=== PATIENT | female | born 1970 ===

== ENCOUNTER 2020-06-28 20:26 | Inpatient (IN) | payer OTHER ==
[2020-06-28] MEDS ORDERED: IPRATROPIUM 0.02% NEBU 2.5 ML IH ONE (21:01)
[2020-06-28] MEDS ORDERED: dexAMETHasone 20 MG/5 ML VIAL IV ONE (21:01)
[2020-06-28] MEDS ORDERED: ALBUTEROL 2.5 MG/3 ML NEBU IH ONE ×2 (21:01→23:46)
--- NOTE | 2020-06-28 21:38 | XRay Report ---
CHEST 1 VIEW INDICATION / CLINICAL INFORMATION: MAIN. Cough with shortness of breath wheezing. COMPARISON: None available. FINDINGS: SUPPORT DEVICES: None. HEART / MEDIASTINUM: No significant abnormality. LUNGS / PLEURA: No significant pulmonary or pleural abnormality. No pneumothorax. ADDITIONAL FINDINGS: No significant additional findings. IMPRESSION: 1. No acute findings. Signer Name: Valerio Breaux MD Signed: 06/28/2020 9:33 PM Workstation Name: [id number]
[2020-06-28] MEDS ORDERED: MAGNESIUM SULFATE 2 GM/50 ML BAG IV ONE (21:47)
[2020-06-28] MEDS ORDERED: SODIUM CHLORIDE 0.9% 1000 ML 1,000 ML IV ONE (23:45)
--- NOTE | 2020-06-29 | Emergency Department Report ---
ED Asthma HPI - General Chief Complaint: Dyspnea/Respdistress Stated Complaint: DIFFICULTY IN BREATHING Time Seen by Provider: 06/28/20 21:01 Source: patient Mode of arrival: Ambulatory Limitations: No Limitations - History of Present Illness Initial Comments: Patient is a 49-year-old female presents emergency room with complaints of an asthma exacerbation that began 2 weeks ago but worsened in the last 3 days. She states that she feels short of breath, wheezing, chest tightness, cough. She states that she uses albuterol inhaler and albuterol nebulizer for her asthma but has not been helping. She denies any fever, nausea, vomiting, diarrhea. S he denies any sick contacts or recent travel. She denies any other past medical history. No allergies to medications. - Related Data Allergies Allergy/AdvReac Type Severity Reaction Status Date / Time No Known Allergies Allergy Unverified 06/28/20 20:58 ED Review of Systems ROS: Stated complaint: DIFFICULTY IN BREATHING Other details as noted in HPI Comment: All other systems reviewed and negative ED Past Medical Hx - Past Medical History Previous Medical History?: Yes Hx Asthma: Yes - Social History Smoking Status: Never Smoker Substance Use Type: None ED Physical Exam - General Limitations: No Limitations General appearance: alert, other (moderate respiratory distress) - Head Head exam: Present: atraumatic, normocephalic - Eye Eye exam: Present: normal appearance - ENT ENT exam: Present: mucous membranes moist - Respiratory Respiratory exam: Present: respiratory distress, wheezes, decreased breath sounds, prolonged expiratory. Absent: rales, rhonchi, stridor, chest wall tenderness - Cardiovascular Cardiovascular Exam: Present: normal rhythm, tachycardia, normal heart sounds. Absent: systolic murmur, diastolic murmur, rubs, gallop - Speculum exam: Absent: vaginal bleeding - Neurological Exam Neurological exam: Present: alert, oriented X3 - Psychiatric Psychiatric exam: Present: normal affect, normal mood - Skin Skin exam: Present: warm, dry, intact ED Course Vital Signs 06/28/20 06/28/20 20:56 21:07 Temperature 97.9 F Pulse Rate 122 H Pulse Rate [ 101 H Throughout] Respiratory 18 Rate Respiratory 16 Rate [ Throughout] Blood Pressure 171/100 O2 Sat by Pulse 91 Oximetry - Reevaluation(s) Reevaluation #1: 06/29/20 01:[address] Valle, ER attending who evaluated patient at bedside, advised to admit patient for status asthmaticus, order subcutaneous epinephrine 0.3, and order ABG - Consultations Consultation #1: 06/29/20 03:[address] Collier, hospitalist who will accept and resume care of patient, will admit patient, advised to bridge to [facility] ED Medical Decision Making - Lab Data Result diagrams: 06/28/20 23:58 06/28/20 23:58 Lab Results 06/28/20 06/28/20 06/29/20 Range/Units 23:58 23:58 02:20 WBC 11.1 H (4.5-11.0) K/mm3 RBC 4.83 (3.65-5.03) M/mm3 Hgb 13.5 (10.1-14.3) gm/dl Hct 40.9 (30.3-42.9) % MCV 85 (79-97) fl MCH 28 (28-32) pg MCHC 33 (30-34) % RDW 14.5 (13.2-15.2) % Plt Count 321 (140-440) K/mm3 Lymph % (Auto) 10.6 L (13.4-35.0) % [place] % (Auto) 1.4 (0.0-7.3) % Eos % (Auto) 1.5 (0.0-4.3) % Baso % (Auto) 0.2 (0.0-1.8) % Lymph # (Auto) 1.2 (1.2-5.4) K/mm3 [place] # (Auto) 0.2 (0.0-0.8) K/mm3 Eos # (Auto) 0.2 (0.0-0.4) K/mm3 Baso # (Auto) 0.0 (0.0-0.1) K/mm3 Seg Neutrophils % 86.3 H (40.0-70.0) % Seg Neutrophils # 9.6 H (1.8-7.7) K/mm3 ABG pH 7.368 (7.350-7.450) pH Units ABG pCO2 34.1 mm Hg ABG pO2 81.3 (80.0-90.0) mm Hg ABG HCO3 19.2 L (20.0-26.0) mmol/L ABG O2 Saturation 96.1 (95.0-99.0) % ABG O2 Content 18.5 (0.0-44) ABG Base Excess -5.2 L (-2.0-3.0) mmol/L ABG Hemoglobin 13.9 (12.0-16.0) gm/dl ABG Carboxyhemoglobin 1.1 (0.0-5.0) % ABG Methemoglobin 0.4 (0.0-1.5) % Oxyhemoglobin 94.6 L (95.0-99.0) % FiO2 21 % Sodium 143 (137-145) mmol/L Potassium 3.7 (3.6-5.0) mmol/L Chloride 108.4 H (98-107) mmol/L Carbon Dioxide 25 (22-30) mmol/L Anion Gap 13 mmol/L BUN 12 (7-17) mg/dL Creatinine 0.5 L (0.6-1.2) mg/dL Estimated GFR > 60 ml/min BUN/Creatinine Ratio 24 % Glucose 141 H (65-100) mg/dL Calcium 9.1 (8.4-10.2) mg/dL Total Bilirubin 0.20 (0.1-1.2) mg/dL AST 17 (5-40) units/L ALT 15 (7-56) units/L Alkaline Phosphatase 101 (35-129) units/L Total Protein 7.4 (6.3-8.2) g/dL Albumin 3.9 (3.9-5) g/dL Albumin/Globulin Ratio 1.1 % - Radiology Data Radiology results: report reviewed Ordering Physician: LAMBERT CORNELIUS Date of Service: 06/28/20 Procedure(s): XR chest 1V ap Accession Number(s): [id number] cc: LAMBERT CORNELIUS Fluoro Time In Minutes: CHEST 1 VIEW INDICATION / CLINICAL INFORMATION: MAIN. Cough with shortness of breath wheezing. COMPARISON: None available. FINDINGS: SUPPORT DEVICES: None. HEART / MEDIASTINUM: No significant abnormality. LUNGS / PLEURA: No significant pulmonary or pleural abnormality. No pneumothorax. ADDITIONAL FINDINGS: No significant additional findings. IMPRESSION: 1. No acute findings. Signer Name: Ngoc Cunningham MD Signed: 06/28/2020 9:33 PM Workstation Name: [id number] Transcribed By: Dictated By: NGOC CUNNINGHAM Electronically Authenticated By: NGOC CUNNINGHAM Signed Date/Time: 06/28/202132 DD/ 31 TD/TT: - Medical Decision Making Patient is a 49-year-old female presents emergency room with complaints of an asthma exacerbation that began 2 weeks ago but worsened in the last 3 days. She states that she feels short of breath, wheezing, chest tightness, cough. She states that she uses albuterol inhaler and albuterol nebulizer for her asthma but has not been helping. She denies any fever, nausea, vomiting, diarrhea. She denies any sick contacts or recent travel. She denies any other past medical history. No allergies to medications. Vitals with tachycardia and hypoxia. On exam patient has moderate respiratory distress, wheezing, decreased breath sounds, prolonged expiratory phase. Patient given continuous neb treatment, dexamethasone. On reexamination patient continues to have wheezing, patient given albuterol and magnesium. Chest x-ray 1. No acute findings. Labs are stable. Patient ambulated in the emergency department her oxygen saturation is 90-91% on room air. She is not on any oxygen at home. She has had no previous intubations. She has had prior hospitalizations. Discussed case with Dr. Valle, ER attending who evaluated patient at bedside, advised to admit patient for status asthmaticus, order subcutaneous epinephrine 0.3, and order ABG. ABG is stable.Spoke to Dr. Collier, hospitalist who will accept and resume care of patient, will admit patient, advised to bridge to [facility]. Patient admitted to hospitalist service - Differential Diagnosis Asthma, URI, PNA, acute bronchitis, reactive airway, sleep apnea Critical Care Time: Yes Critical care time in (mins) excluding proc time.: 35 Critical care attestation.: If time is entered above; I have spent that time in minutes in the direct care of this critically ill patient, excluding procedure time. Critical Care Time: Critical care time includes multiple reexaminations, consultations, interpretation of diagnostic and laboratory studies ED Disposition Clinical Impression: Hypoxia, SOB (shortness of breath), Wheezing, Chest tightness Status asthmaticus Qualifiers: Asthma severity: unspecified severity Asthma persistence: unspecified Qualified Code(s): J45.902 - Unspecified asthma with status asthmaticus Disposition: OP ADMIT IP TO THIS HOSP Is pt being admited?: Yes Does the pt Need Aspirin: No Condition: Serious Referrals: PRIMARY CARE,MD [Primary Care Provider] - 3-5 Days
[2020-06-29 00:24] LABS: Basophils % (Auto) 0.2 % (0.0-1.8); Eosinophils # (Auto) 0.2 K/mm3 (0.0-0.4); Eosinophils % (Auto) 1.5 % (0.0-4.3); Hematocrit 40.9 % (30.3-42.9); Hemoglobin 13.5 gm/dl (10.1-14.3); Lymphocytes # (Auto) 1.2 K/mm3 (1.2-5.4); Lymphocytes % (Auto) 10.6 % (13.4-35.0); Mean Corpuscular HGB Conc 33 % (30-34); Mean Corpuscular Volume 85 fl (79-97); Monocytes # (Auto) 0.2 K/mm3 (0.0-0.8); Monocytes % (Auto) 1.4 % (0.0-7.3); Platelet Count 321 K/mm3 (140-440); Red Blood Count 4.83 M/mm3 (3.65-5.03); Red Cell Distribution Width 14.5 % (13.2-15.2)
[2020-06-29 00:48] LABS: BUN/Creatinine Ratio 24; Blood Urea Nitrogen 12 mg/dL (7-17)
[2020-06-29 00:49] LABS: Alanine Aminotransferase 15 units/L (7-56); Albumin 3.9 g/dL (3.9-5); Calcium 9.1 mg/dL (8.4-10.2); Hemolysis Index 3
[2020-06-29] MEDS ORDERED: EPINEPHrine/PF 1 MG/1 ML INJ SUB-Q ONE (01:55)
--- NOTE | 2020-06-29 02:14 | Event Note ---
Date: 06/29/20 The patient was evaluated in the emergency department for symptoms described in the history of present illness. He/she was evaluated in the context of the global COVID-19 pandemic, which necessitated consideration that the patient might be at risk for infection with the virus that causes COVID-19. Institutional protocols and algorithms that pertain to the evaluation of patients at risk for COVID-19 are in a state of rapid change based on information released by regulatory bodies including the CDC and federal and state organizations. These policies and algorithms were followed during the patient's care in the emergency department. Please note that these policies, procedures and recommendations changed on a rapid basis. 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 She denies DVT, pulmonary embolism risk factors. Given albuterol, steroids, magnesium, still wheezing, rhonchorous, short of breath and symptomatic. Meets criteria for hospitalization secondary to refractory asthma. Saturating at 95% on room air. Obtain ABG on room air, initiate subcutaneous epinephrine, continue albuterol. Discussed with physician construction administrative assistant. Physical exam otherwise unremarkable, with exception of tachycardia, likely secondary to albuterol, reactive airways disease, and diffuse wheezing and rhonchi. Vital Signs 06/28/20 06/28/20 20:56 21:07 Temperature 97.9 F Pulse Rate 122 H Pulse Rate [ 101 H Throughout] Respiratory 18 Rate Respiratory 16 Rate [ Throughout] Blood Pressure 171/100 O2 Sat by Pulse 91 Oximetry Lab Results 06/28/20 06/28/20 Range/Units 23:58 23:58 WBC 11.1 H (4.5-11.0) K/mm3 RBC 4.83 (3.65-5.03) M/mm3 Hgb 13.5 (10.1-14.3) gm/dl Hct 40.9 (30.3-42.9) % MCV 85 (79-97) fl MCH 28 (28-32) pg MCHC 33 (30-34) % RDW 14.5 (13.2-15.2) % Plt Count 321 (140-440) K/mm3 Lymph % (Auto) 10.6 L (13.4-35.0) % [place] % (Auto) 1.4 (0.0-7.3) % Eos % (Auto) 1.5 (0.0-4.3) % Baso % (Auto) 0.2 (0.0-1.8) % Lymph # (Auto) 1.2 (1.2-5.4) K/mm3 [place] # (Auto) 0.2 (0.0-0.8) K/mm3 Eos # (Auto) 0.2 (0.0-0.4) K/mm3 Baso # (Auto) 0.0 (0.0-0.1) K/mm3 Seg Neutrophils % 86.3 H (40.0-70.0) % Seg Neutrophils # 9.6 H (1.8-7.7) K/mm3 Sodium 143 (137-145) mmol/L Potassium 3.7 (3.6-5.0) mmol/L Chloride 108.4 H (98-107) mmol/L Carbon Dioxide 25 (22-30) mmol/L Anion Gap 13 mmol/L BUN 12 (7-17) mg/dL Creatinine 0.5 L (0.6-1.2) mg/dL Estimated GFR > 60 ml/min BUN/Creatinine Ratio 24 % Glucose 141 H (65-100) mg/dL Calcium 9.1 (8.4-10.2) mg/dL Total Bilirubin 0.20 (0.1-1.2) mg/dL AST 17 (5-40) units/L ALT 15 (7-56) units/L Alkaline Phosphatase 101 (35-129) units/L Total Protein 7.4 (6.3-8.2) g/dL Albumin 3.9 (3.9-5) g/dL Albumin/Globulin Ratio 1.1 % Print Report Referring Physician: BRANDI BURNS Patient Name: MOSES SAMPSON Date of : 1970 Sex: Female Report Date: 2020-06-28 Report Status: Finalized Findings [facility] [address] [place] [address] XRay Report Signed Patient: MOSES BACH MR#: [id number] : 1970 Acct:[id number] Age/Sex: 49 / F ADM Date: 06/28/20 Loc: ED Attending Dr: Ordering Physician: LAMBERT CORNELIUS Date of Service: 06/28/20 Procedure(s): XR chest 1V ap Accession Number(s): [id number] cc: LAMBERT CORNELIUS Fluoro Time In Minutes: CHEST 1 VIEW INDICATION / CLINICAL INFORMATION: MAIN. Cough with shortness of breath wheezing. COMPARISON: None available. FINDINGS: SUPPORT DEVICES: None. HEART / MEDIASTINUM: No significant abnormality. LUNGS / PLEURA: No significant pulmonary or pleural abnormality. No pneumothorax. ADDITIONAL FINDINGS: No significant additional findings. IMPRESSION: 1. No acute findings. Signer Name: Valerio Cunningham MD Signed: 06/28/2020 9:33 PM Workstation Name: [id number] Transcribed By: Dictated By: VALERIO CUNNINGHAM Electronically Authenticated By: VALERIO CUNNINGHAM Signed Date/Time: 06/28/202132 DD/ 31 TD/TT:
[2020-06-29 03:01] LABS: ABG Base Excess -5.2 mmol/L (-2.0-3.0); ABG HCO3 19.2 mmol/L (20.0-26.0); ABG Methemoglobin 0.4 % (0.0-1.5); ABG Oxygen Saturation 96.1 % (95.0-99.0); ABG PCO2 34.1 mm Hg; ABG PH 7.368 pH Units (7.350-7.450); ABG PO2 81.3 mm Hg (80.0-90.0)
[2020-06-29] MEDS ORDERED: EPINEPHrine/PF 1 MG/1 ML INJ ONE (05:37)
[2020-06-29] MEDS ORDERED: guaiFENesin 100 MG/5 ML ORAL LIQD PO ONE (05:49)
[2020-06-29] MEDS ORDERED: guaiFENesin 100 MG/5 ML ORAL LIQD ONE (05:49)
[2020-06-29] MEDS ORDERED: methylPREDNISolone Sod Succinate 125 MG/2 ML INJ IV SCH (08:00)
[2020-06-29] MEDS ORDERED: methylPREDNISolone Sod Suc 60 MG in SODIUM CHLORIDE 0.9% 100 ML IV SCH (08:11)
[2020-06-29] MEDS ORDERED: methylPREDNISolone Sod Succinate 125 MG/2 ML INJ ONE ×2 (09:08→13:21)
[2020-06-29] MEDS ORDERED: ALBUTEROL 2.5 MG/3 ML NEBU IH ONE ×3 (09:31→21:34)
[2020-06-29] MEDS ORDERED: IPRATROPIUM 0.02% NEBU 2.5 ML IH ONE (09:32)
--- NOTE | 2020-06-29 10:47 | History and Physical Report ---
History of Present Illness Date of examination: 06/29/20 Date of admission: 06/29/20 03:20 Chief complaint: Shortness of breath History of present illness: 9-year-old female with a medical history of asthma on home inhalers presented to the emergency room with a chief complaint of shortness of breath. Patient states that she usually uses her inhalers when she has an attack of asthma and she occasionally gets IV steroid treatment in her PCPs office. She started having symptoms about 1 week ago and she was not getting any relief from her inhaler so she presented to her doctor's office. She could not see her doctor as she needed to have a COVID-19 test prior so she presented to the emergency room for further evaluation. She denies any history of intubations in the past. She denies any contact with someone with COVID-19. Here in the ER, she was given steroids, magnesium, still dyspneic so she was admitted to the hospital. She was not hypoxic without oxygen remained in the 90s. Patient seen and examined at bedside this a.m., she is not dyspneic at rest. Examination shows diffuse expiratory wheezes. Past History Past Medical History: other (Asthma) Past Surgical History: No surgical history Medications and Allergies Allergies Allergy/AdvReac Type Severity Reaction Status Date / Time No Known Allergies Allergy Unverified 06/28/20 20:58 Active Meds: Active Medications Albuterol (Proventil) 2.5 mg IH Q6HRT [facility] Arformoterol Tartrate (Brovana Nebu) 15 mcg IH Q12HRT [facility] Budesonide (Pulmicort) 0.5 mg IH Q12HRT [facility] Methylprednisolone Sodium Succinate (Solu-Medrol) 60 mg IV Q6H [facility] Last Admin: 06/29/20 09:14 Dose: 60 mg Documented by: Review of Systems All systems: negative (Dyspnea on exertion) Exam - Constitutional Vitals: Temp Pulse Resp BP Pulse Ox 98.0 F 105 H 17 122/75 95 06/29/20 04:40 06/29/20 04:40 06/29/20 04:40 06/29/20 04:40 06/29/20 04:40 General appearance: Present: no acute distress, well-nourished - EENT Eyes: Present: PERRL ENT: hearing intact, clear oral mucosa - Neck Neck: Present: supple, normal ROM - Respiratory Respiratory effort: normal Respiratory: bilateral: wheezing - Cardiovascular Heart Sounds: Present: S1 & S2. Absent: rub, click - Extremities Extremities: pulses symmetrical, No edema Peripheral Pulses: within normal limits - Abdominal General gastrointestinal: Present: soft, non-tender, non-distended, normal bowel sounds Female genitourinary: Present: normal - Integumentary Integumentary: Present: clear, warm, dry - Musculoskeletal Musculoskeletal: gait normal, strength equal bilaterally - Psychiatric Psychiatric: appropriate mood/affect, intact judgment & insight - Neurologic Neurologic: CNII-XII intact, moves all extremities Results - Labs CBC & Chem 7: 06/28/20 23:58 06/28/20 23:58 Labs: Laboratory Last Values WBC 11.1 K/mm3 (4.5-11.0) H 06/28/20 23:58 RBC 4.83 M/mm3 (3.65-5.03) 06/28/20 23:58 Hgb 13.5 gm/dl (10.1-14.3) 06/28/20 23:58 Hct 40.9 % (30.3-42.9) 06/28/20 23:58 MCV 85 fl (79-97) 06/28/20 23:58 MCH 28 pg (28-32) 06/28/20 23:58 MCHC 33 % (30-34) 06/28/20 23:58 RDW 14.5 % (13.2-15.2) 06/28/20 23:58 Plt Count 321 K/mm3 (140-440) 06/28/20 23:58 Lymph % (Auto) 10.6 % (13.4-35.0) L 06/28/20 23:58 [place] % (Auto) 1.4 % (0.0-7.3) 06/28/20 23:58 Eos % (Auto) 1.5 % (0.0-4.3) 06/28/20 23:58 Baso % (Auto) 0.2 % (0.0-1.8) 06/28/20 23:58 Lymph # (Auto) 1.2 K/mm3 (1.2-5.4) 06/28/20 23:58 [place] # (Auto) 0.2 K/mm3 (0.0-0.8) 06/28/20 23:58 Eos # (Auto) 0.2 K/mm3 (0.0-0.4) 06/28/20 23:58 Baso # (Auto) 0.0 K/mm3 (0.0-0.1) 06/28/20 23:58 Seg Neutrophils % 86.3 % (40.0-70.0) H 06/28/20 23:58 Seg Neutrophils # 9.6 K/mm3 (1.8-7.7) H 06/28/20 23:58 ABG pH 7.368 pH Units (7.350-7.450) 06/29/20 02:20 ABG pCO2 34.1 mm Hg 06/29/20 02:20 ABG pO2 81.3 mm Hg (80.0-90.0) 06/29/20 02:20 ABG HCO3 19.2 mmol/L (20.0-26.0) L 06/29/20 02:20 ABG O2 Saturation 96.1 % (95.0-99.0) 06/29/20 02:20 ABG O2 Content 18.5 (0.0-44) 06/29/20 02:20 ABG Base Excess -5.2 mmol/L (-2.0-3.0) L 06/29/20 02:20 ABG Hemoglobin 13.9 gm/dl (12.0-16.0) 06/29/20 02:20 ABG Carboxyhemoglobin 1.1 % (0.0-5.0) 06/29/20 02:20 ABG Methemoglobin 0.4 % (0.0-1.5) 06/29/20 02:20 Oxyhemoglobin 94.6 % (95.0-99.0) L 06/29/20 02:20 FiO2 21 % 06/29/20 02:20 Sodium 143 mmol/L (137-145) 06/28/20 23:58 Potassium 3.7 mmol/L (3.6-5.0) 06/28/20 23:58 Chloride 108.4 mmol/L (98-107) H 06/28/20 23:58 Carbon Dioxide 25 mmol/L (22-30) 06/28/20 23:58 Anion Gap 13 mmol/L 06/28/20 23:58 BUN 12 mg/dL (7-17) 06/28/20 23:58 Creatinine 0.5 mg/dL (0.6-1.2) L 06/28/20 23:58 Estimated GFR > 60 ml/min 06/28/20 23:58 BUN/Creatinine Ratio 24 % 06/28/20 23:58 Glucose 141 mg/dL (65-100) H 06/28/20 23:58 Calcium 9.1 mg/dL (8.4-10.2) 06/28/20 23:58 Total Bilirubin 0.20 mg/dL (0.1-1.2) 06/28/20 23:58 AST 17 units/L (5-40) 06/28/20 23:58 ALT 15 units/L (7-56) 06/28/20 23:58 Alkaline Phosphatase 101 units/L (35-129) 06/28/20 23:58 Total Protein 7.4 g/dL (6.3-8.2) 06/28/20 23:58 Albumin 3.9 g/dL (3.9-5) 06/28/20 23:58 Albumin/Globulin Ratio 1.1 % 06/28/20 23:58 Assessment and Plan - Patient Problems (1) Acute asthma exacerbation Current Visit: Yes Status: Acute Plan to address problem: She is not hypoxic at rest but may be hypoxic on ambulation she gets dyspneic with ambulation. Solu-Medrol 60 mg every 8 hours today and taper tomorrow Bronchodilators Pulmonology follow-up at discharge We will check [id number] ordered Patient will need to have prescription for nebulizer, inhalers and albuterol vials at discharge. She states that she does not have insurance so we will discuss with case management. (2) DVT prophylaxis Current Visit: Yes Status: Acute Plan to address problem: Lovenox 40 mg daily
[2020-06-29] MEDS ORDERED: ONDANSETRON 4 MG/2 ML INJ IV PRN (11:00)
[2020-06-29] MEDS ORDERED: ACETAMINOPHEN 325 MG TAB PO PRN (11:00)
[2020-06-29] MEDS: ALBUTEROL 2.5 MG/3 ML NEBU IH SCH ×5 (11:23→21:37)
[2020-06-29] MEDS: ARFORMOTEROL 15 MCG/2 ML NEBU IH SCH ×2 (11:24→21:38)
[2020-06-29] MEDS: BUDESONIDE 0.5 MG/2 ML NEBU IH SCH ×2 (11:25→21:38)
[2020-06-29] MEDS: methylPREDNISolone Sod Succinate 125 MG/2 ML INJ IV SCH ×2 (13:33→22:57)
[2020-06-29] MEDS ORDERED: ARFORMOTEROL 15 MCG/2 ML NEBU IH ONE (21:34)
[2020-06-29] MEDS ORDERED: BUDESONIDE 0.5 MG/2 ML NEBU IH ONE (21:34)
[2020-06-29] MEDS ORDERED: ENOXAPARIN 40 MG/0.4 ML INJ SUB-Q SCH (22:00)
[2020-06-30] MEDS: ALBUTEROL 2.5 MG/3 ML NEBU IH SCH ×3 (03:00→14:19)
[2020-06-30] MEDS: methylPREDNISolone Sod Succinate 125 MG/2 ML INJ IV SCH ×2 (05:58→13:06)
[2020-06-30] MEDS: BUDESONIDE 0.5 MG/2 ML NEBU IH SCH (08:25)
[2020-06-30] MEDS: ARFORMOTEROL 15 MCG/2 ML NEBU IH SCH (08:25)
--- NOTE | 2020-06-30 14:39 | Discharge Summary ---
Providers - Providers Date of Admission: 06/29/20 15:07 Date of discharge: 06/30/20 Attending physician: SHASHANK DAVID 06/29/20 Consult to Case Management [CONS] Routine Services Needed at Discharge: DME Equipment Notified:: Order placed for case management review Primary care physician: BOTTOM MAN Hospitalization Condition: Serious Hospital course: 9-year-old female with a medical history of asthma on home inhalers presented to the emergency room with a chief complaint of shortness of breath. Patient states that she usually uses her inhalers when she has an attack of asthma and she occasionally gets IV steroid treatment in her PCPs office. She started having symptoms about 1 week ago and she was not getting any relief from her inhaler so she presented to her doctor's office. She could not see her doctor as she needed to have a COVID-19 test prior so she presented to the emergency room for further evaluation. She denies any history of intubations in the past. She denies any contact with someone with COVID-19. Here in the ER, she was given steroids, magnesium, still dyspneic so she was admitted to the hospital. She was not hypoxic without oxygen remained in the 90s. Patient seen and examined at bedside this a.m., she is not dyspneic at rest. Examination shows diffuse expiratory wheezes. Patient started on IV Solu-Medrol and admitted to the hospital. 06/30. Patient seen and examined at bedside this morning. Has very minimal wheeze on exam. Taper steroids today. Ambulate and if oxygen level remains acceptable, plan to discharge. COVID-19 test is negative. Patient will need to have prescriptions for albuterol, nebulizer, rescue inhaler maintenance inhalers. She has no insurance. She mentions that she has been having asthma exacerbation recurrences in the past few months. She will need to follow-up with pulmonology for complete evaluation. Patient agrees with plan. Disposition: - TO HOME OR SELFCARE - Discharge Diagnoses (1) Acute asthma exacerbation Status: Acute (2) DVT prophylaxis Status: Acute Core Measure Documentation - Palliative Care Palliative Care/ Comfort Measures: Not Applicable - Core Measures Any of the following diagnoses?: none Exam - Constitutional Vitals: Temp Pulse Resp BP Pulse Ox 97.7 F 87 16 118/61 91 06/30/20 04:43 06/30/20 04:43 06/30/20 04:43 06/30/20 04:43 06/30/20 04:43 General appearance: Present: no acute distress, well-nourished - EENT Eyes: Present: PERRL ENT: hearing intact, clear oral mucosa - Neck Neck: Present: supple, normal ROM - Respiratory Respiratory effort: normal, other (No shortness of breath) Respiratory: bilateral: wheezing (Very minimal) - Cardiovascular Heart Sounds: Present: S1 & S2. Absent: rub, click - Extremities Extremities: pulses symmetrical, No edema Peripheral Pulses: within normal limits - Abdominal General gastrointestinal: Present: soft, non-tender, non-distended, normal bowel sounds Female genitourinary: Present: normal - Integumentary Integumentary: Present: clear, warm, dry - Musculoskeletal Musculoskeletal: gait normal, strength equal bilaterally - Psychiatric Psychiatric: appropriate mood/affect, intact judgment & insight - Neurologic Neurologic: CNII-XII intact, moves all extremities Plan Activity: no restrictions Additional Instructions: Continue prednisone as ordered. Continue maintenance inhalers as ordered. Follow-up with pulmonology in the office for pulmonary function tests. Follow up with: PRIMARY CARE, [Primary Care Provider] - 3-5 Days SERAFIN RUBI MD [Staff Physician] - 7 Days Prescriptions: Fluticasone/Salmeterol [Advair 250-50 Diskus] 1 each IH BID #1 inh predniSONE [Deltasone] 40 mg PO BID #8 tab predniSONE [Deltasone] 40 mg PO DAILY 5 Days #10 tablet ALBUTEROL NEB's [Proventil 0.083% NEBS] 2.5 mg IH Q8HR PRN #300 ml PRN Reason: Wheezing
[2020-06-30 15:02] VITALS: BP 132/86
== END 2020-06-30 17:11 | disposition home or self-care (01) | DRG 203 ==
LOC: ED 20:26 → 4A 06-29 03:20 → 3A 06-29 06:24 → OBSVTOIN 06-29 15:07 → 3A 06-29 19:53
PROVIDERS: ADMIT Internal Medicine Geriatric Medicine; ATTEND Internal Medicine
PROC: 4A033R1 Measurement of Arterial Saturation, Peripheral, Percutaneous Approach (ICD-10-PCS; principal; 2020-06-29)
DX: J45.902 Unspecified asthma with status asthmaticus (principal); Z20.828 Contact with and (suspected) exposure to other viral communicable diseases; Z79.52 Long term (current) use of systemic steroids
CPT/HCPCS: 36415; 71045; 80053; 82803; 85025; 94640; 94644; G0378; J0171; J1100; J1650; J2930; J3475; J7030; U0003

== ENCOUNTER 2020-08-28 04:38 | Observation (INO) | payer MEDICAID ==
[2020-08-28] MEDS ORDERED: IPRATROPIUM/ALBUTEROL SULFATE 3 ML AMPUL.NEB IH ONE (04:47)
[2020-08-28] MEDS ORDERED: ALBUTEROL 2.5 MG/3 ML NEBU IH ONE (04:47)
[2020-08-28] MEDS ORDERED: methylPREDNISolone Sod Succinate 125 MG/2 ML INJ IM ONE (04:49)
[2020-08-28] MEDS ORDERED: MAGNESIUM SULFATE 2 GM/50 ML BAG IV ONE (04:51)
[2020-08-28] MEDS ORDERED: IPRATROPIUM 0.02% NEBU 2.5 ML IH ONE ×2 (05:04→05:13)
--- NOTE | 2020-08-28 05:10 | Emergency Department Report ---
ED Shortness of Breath HPI - General Chief Complaint: Adult Asthma Stated Complaint: ASTHMA Time Seen by Provider: 08/28/20 05:03 Source: patient Mode of arrival: Ambulatory Limitations: No Limitations - History of Present Illness Initial Comments: Patient is a 49-year-old female that presents emergency room with complaints of difficulty breathing and shortness of breath. Patient states she has asthma. Per states her symptoms started yesterday. Patient states her symptoms are worsening. Patient states she has taken her inhalers with no improvement. Patient states she cannot breathe or move air. Patient states her symptoms are better with rest and worse with exertion. Patient states her symptoms are also better with upright positioning. Patient denies recent travel. Patient denies recent international travel. Patient denies exposure to the novel coronavirus. Patient denies sick contacts. Patient denies fever and chills. Patient denies cough. Patient denies diarrhea. Patient denies coming in contact with anybody with symptoms of the novel coronavirus. MD Complaint: shortness of breath, "asthma attack" Severity: severe Improves With: rest, bronchodilators, upright position Worsens With: exertion Known History Of: asthma Associated Symptoms: denies other symptoms Treatments Prior to Arrival: bronchodilator - Related Data Home Oxygen Therapy: No Previous Rx's Medication Instructions Recorded Last Taken Type ALBUTEROL NEB's [Proventil 0.083% 2.5 mg IH Q8HR PRN #300 ml 06/30/20 Unknown Rx NEBS] Albuterol Sulfate [Albuterol 0.63% 0.63 mg IH Q8HR PRN #90 vial 06/30/20 Unknown Rx NEBS] Fluticasone Propion/Salmeterol 1 each IH BID #1 inh 06/30/20 Unknown Rx [Fluticasone-Salmeterol 250-50] Fluticasone/Salmeterol [Advair 1 each IH BID #1 inh 06/30/20 Unknown Rx 250-50 Diskus] predniSONE [Deltasone] 40 mg PO BID #8 tablet 06/30/20 Unknown Rx predniSONE [Deltasone] 40 mg PO QDAY #10 tab 06/30/20 Unknown Rx Allergies Allergy/AdvReac Type Severity Reaction Status Date / Time No Known Allergies Allergy Unverified 06/28/20 20:58 ED Review of Systems ROS: Stated complaint: ASTHMA Other details as noted in HPI Constitutional: denies: chills, fever Eyes: denies: eye pain, eye discharge, vision change ENT: denies: ear pain, throat pain Respiratory: shortness of breath, wheezing. denies: cough Cardiovascular: denies: chest pain, palpitations Endocrine: no symptoms reported Gastrointestinal: denies: abdominal pain, nausea, diarrhea Genitourinary: denies: urgency, dysuria, discharge Musculoskeletal: denies: back pain, joint swelling, arthralgia Skin: denies: rash, lesions Neurological: denies: headache, weakness, paresthesias Psychiatric: denies: anxiety, depression Hematological/Lymphatic: denies: easy bleeding, easy bruising ED Past Medical Hx - Past Medical History Previous Medical History?: Yes Hx Asthma: Yes Additional medical history: Obesity - Surgical History Past Surgical History?: Yes Hx Appendectomy: Yes - Family History Family history: no significant - Social History Smoking Status: Never Smoker Substance Use Type: None - Medications Home Medications: Home Medications Medication Instructions Recorded Confirmed Last Taken Type ALBUTEROL NEB's [Proventil 0.083% 2.5 mg IH Q8HR PRN #300 ml 06/30/20 Unknown Rx NEBS] Albuterol Sulfate [Albuterol 0.63% 0.63 mg IH Q8HR PRN #90 vial 06/30/20 Unknown Rx NEBS] Fluticasone Propion/Salmeterol 1 each IH BID #1 inh 06/30/20 Unknown Rx [Fluticasone-Salmeterol 250-50] Fluticasone/Salmeterol [Advair 1 each IH BID #1 inh 06/30/20 Unknown Rx 250-50 Diskus] predniSONE [Deltasone] 40 mg PO BID #8 tablet 06/30/20 Unknown Rx predniSONE [Deltasone] 40 mg PO QDAY #10 tab 06/30/20 Unknown Rx ED Physical Exam - General Limitations: No Limitations General appearance: alert, in distress - Head Head exam: Present: atraumatic, normocephalic - Eye Eye exam: Present: normal appearance - ENT ENT exam: Present: mucous membranes moist - Neck Neck exam: Present: normal inspection - Respiratory Respiratory exam: Present: respiratory distress, wheezes, accessory muscle use, decreased breath sounds - Cardiovascular Cardiovascular Exam: Present: regular rate, normal rhythm. Absent: systolic murmur, diastolic murmur, rubs, gallop - GI/Abdominal GI/Abdominal exam: Present: soft, normal bowel sounds - Extremities Exam Extremities exam: Present: normal inspection - Back Exam Back exam: Present: normal inspection - Neurological Exam Neurological exam: Present: alert, oriented X3 - Psychiatric Psychiatric exam: Present: normal affect, normal mood - Skin Skin exam: Present: warm, dry, intact, normal color. Absent: rash ED Course Vital Signs 08/28/20 04:54 Temperature 98.5 F Pulse Rate 104 H Respiratory 22 Rate Blood Pressure 175/96 O2 Sat by Pulse 95 Oximetry - Reevaluation(s) Reevaluation #1: Initial evaluation done. Patient will be given Solu-Medrol, magnesium, albuterol 10 mg. 08/28/20 05:07 Reevaluation #2: Patient has received Solu-Medrol and magnesium. Patient states she is feeling a little better. Patient still has retractions and increased work to breathe but they are better. Patient is wheezing throughout. Patient is still receiving albuterol treatment. 08/28/20 05:35 Reevaluation #3: I discussed all results with patient. I discussed plan of care with patient. Patient agrees with plan of care and admission. Patient to be admitted to the hospitalist service. 08/28/20 05:56 - Consultations Consultation #1: Hospitalist consulted for admission. Hospitalist to admit patient. 08/28/20 05:59 ED Medical Decision Making - Radiology Data Radiology results: report reviewed, image reviewed interpreted by me: Chest x-ray: No pneumonia, no pneumothorax, no foreign body, no osseous findings, no acute findings - Medical Decision Making Patient is a 49-year-old female that presents emergency room with complaints of difficulty breathing and worsening asthma. Patient having wheezing and respiratory distress. Patient found to have increased work to breathe and retractions. Patient on initial evaluation moving minimal air and only has mild wheezes. Patient given Solu-Medrol and magnesium and a 10 mg albuterol ipratropium. Patient's lung sounds improved. Patient was still wheezing throughout after treatment. Patient work of breathing retractions did improve slightly. Patient is labs were found essentially unremarkable. Patient's chest x-ray was negative. Patient admitted to the hospital service for further evaluation and treatment and observation. - Differential Diagnosis Asthma, status asthmaticus, S OB Critical Care Time: Yes Critical care time in (mins) excluding proc time.: 35 Critical care attestation.: If time is entered above; I have spent that time in minutes in the direct care of this critically ill patient, excluding procedure time. Critical Care Time: 35 minutes ED Disposition Clinical Impression: SOB (shortness of breath), Wheezing Status asthmaticus Qualifiers: Asthma severity: severe Asthma persistence: persistent Qualified Code(s): J45.52 - Severe persistent asthma with status asthmaticus Disposition: 09 OP ADMIT IP TO THIS HOSP Is pt being admited?: Yes Does the pt Need Aspirin: No Condition: Critical Time of Disposition: 06:01
--- NOTE | 2020-08-28 05:35 | XRay Report ---
CHEST 1 VIEW 0509 INDICATION / CLINICAL INFORMATION: chest pain COMPARISON: 06/28/2020 FINDINGS: SUPPORT DEVICES: None HEART / MEDIASTINUM: No significant abnormality. LUNGS / PLEURA: No significant pulmonary or pleural abnormality. No pneumothorax. ADDITIONAL FINDINGS: No significant additional findings. IMPRESSION: No significant acute abnormality Signer Name: Alfredo Campbell MD Signed: 08/28/2020 5:30 AM Workstation Name: [id number]
--- NOTE | 2020-08-28 06:07 | History and Physical Report ---
History of Present Illness Date of examination: 08/28/20 Chief complaint: Shortness of breath Acute asthma exacerbation History of present illness: 49 years old female with history of asthma was brought to the hospital because of progressive shortness of breath as stated cough since yesterday. Patient denied any fever Patient states her symptoms are worsening. Patient states she has taken her inhalers with no improvement. Patient states she cannot breathe or move air. Patient states her symptoms are better with rest and worse with exertion. Patient states her symptoms are also better with upright positioning. In the emergency room patient is found to have acute asthma exacerbation. Medications and Allergies Allergies Allergy/AdvReac Type Severity Reaction Status Date / Time No Known Allergies Allergy Unverified 06/28/20 20:58 Home Medications Medication Instructions Recorded Confirmed Last Taken Type ALBUTEROL NEB's [Proventil 0.083% 2.5 mg IH Q8HR PRN #300 ml 06/30/20 Unknown Rx NEBS] Albuterol Sulfate [Albuterol 0.63% 0.63 mg IH Q8HR PRN #90 vial 06/30/20 Unknown Rx NEBS] Fluticasone Propion/Salmeterol 1 each IH BID #1 inh 06/30/20 Unknown Rx [Fluticasone-Salmeterol 250-50] Fluticasone/Salmeterol [Advair 1 each IH BID #1 inh 06/30/20 Unknown Rx 250-50 Diskus] predniSONE [Deltasone] 40 mg PO BID #8 tablet 06/30/20 Unknown Rx predniSONE [Deltasone] 40 mg PO QDAY #10 tab 06/30/20 Unknown Rx Active Meds: Active Medications Budesonide (Budesonide 0.5 Mg/2 Ml Nebu) 0.5 mg IH Q12HRT RICK Heparin Sodium (Porcine) (Heparin 5,000 Unit/1 Ml Vial) 5,000 unit SUB-Q Q8HR RICK Azithromycin (Zithromax/Ns) 500 mg in 250 mls @ 250 mls/hr IV Q24H RICK; Protocol Methylprednisolone Sodium Succinate (Methylprednisolone Sod Succinate 40 Mg/1 Ml Inj) 40 mg IV Q6HR RICK Montelukast Sodium (Montelukast 10 Mg Tab) 10 mg PO QHS RICK Pantoprazole Sodium (Pantoprazole 40 Mg Tab) 40 mg PO QDAC RICK Review of Systems Cardiovascular: shortness of breath Respiratory: cough, shortness of breath, dyspnea on exertion, wheezing Exam - Constitutional Vitals: Temp Pulse Resp BP Pulse Ox 98.5 F 102 H 28 H 175/96 95 08/28/20 04:54 08/28/20 05:15 08/28/20 05:15 08/28/20 04:54 08/28/20 04:54 General appearance: Present: mild distress - EENT Eyes: Present: PERRL ENT: hearing intact, clear oral mucosa - Neck Neck: Present: supple, normal ROM - Respiratory Respiratory effort: normal Respiratory: bilateral: wheezing - Cardiovascular Heart Sounds: Present: S1 & S2. Absent: rub, click - Extremities Extremities: pulses symmetrical, No edema Peripheral Pulses: within normal limits - Abdominal General gastrointestinal: Present: soft, non-tender, non-distended, normal bowel sounds Female genitourinary: Present: normal - Integumentary Integumentary: Present: clear, warm, dry - Musculoskeletal Musculoskeletal: gait normal, strength equal bilaterally - Psychiatric Psychiatric: appropriate mood/affect, intact judgment & insight - Neurologic Neurologic: CNII-XII intact, moves all extremities Results - Imaging and Cardiology Chest x-ray: image reviewed Heller/IV: IV Catheter Type [Right Distal INT / Saline Lock Port Antecubital] Assessment and Plan - Patient Problems (1) SOB (shortness of breath) Current Visit: Yes Status: Acute Plan to address problem: Oxygen via nasal cannula 3 L/min. DuoNeb nebulizer every 4 hours as needed. Solu-Medrol 40 mg IV every 6 hours. Singular 10 mg p.o. daily. Zithromax 500 mg IV daily. We do the blood cultures sputum culture. Recheck CBC BMP in the morning. (2) Acute asthma exacerbation Current Visit: No Status: Acute Plan to address problem: Admit the patient to the medical telemetry. Oxygen via nasal cannula 3 L/min. DuoNeb nebulizer every 4 hours as needed. Solu-Medrol 40 mg IV every 6 hours. Singular 10 mg p.o. daily. Zithromax 500 mg IV daily. We do the blood cultures sputum culture. Recheck CBC BMP in the morning. (3) DVT prophylaxis Current Visit: No Status: Acute Plan to address problem: Heparin 5000 units subcu every 8 hours. Protonix 40 mg p.o. daily for GI prophylaxis
[2020-08-28 06:10] LABS: Basophils % (Auto) 0.4 % (0.0-1.8); Eosinophils # (Auto) 0.4 K/mm3 (0.0-0.4); Eosinophils % (Auto) 4.9 % (0.0-4.3); Hematocrit 42.2 % (30.3-42.9); Hemoglobin 13.6 gm/dl (10.1-14.3); Lymphocytes # (Auto) 1.9 K/mm3 (1.2-5.4); Lymphocytes % (Auto) 21.9 % (13.4-35.0); Mean Corpuscular HGB Conc 32 % (30-34); Mean Corpuscular Volume 84 fl (79-97); Monocytes # (Auto) 0.6 K/mm3 (0.0-0.8); Monocytes % (Auto) 6.3 % (0.0-7.3); Platelet Count 354 K/mm3 (140-440); Red Blood Count 5.03 M/mm3 (3.65-5.03); Red Cell Distribution Width 15.2 % (13.2-15.2)
[2020-08-28 06:36] LABS: Alanine Aminotransferase 16 units/L (7-56); Albumin 4.2 g/dL (3.9-5); Blood Urea Nitrogen 9 mg/dL (7-17); Calcium 8.9 mg/dL (8.4-10.2); Hemolysis Index 4
[2020-08-28 06:51] LABS: BUN/Creatinine Ratio 18
[2020-08-28] MEDS: BUDESONIDE 0.5 MG/2 ML NEBU IH SCH ×2 (07:54→20:54)
[2020-08-28] MEDS: PANTOPRAZOLE 40 MG TAB PO SCH (10:33)
[2020-08-28] MEDS: HEPARIN 5,000 UNIT/1 ML VIAL SUB-Q SCH ×4 (10:44→21:55)
[2020-08-28] MEDS: AZITHROMYCIN/NS 500 MG/250 ML 500 MG/250 ML BAG IV SCH (10:45)
[2020-08-28] MEDS: IPRATROPIUM/ALBUTEROL SULFATE 3 ML AMPUL.NEB IH SCH ×3 (11:12→20:53)
[2020-08-28] MEDS ORDERED: methylPREDNISolone Sod Succinate 40 MG/1 ML INJ IV SCH (12:00)
[2020-08-28] MEDS: methylPREDNISolone Sod Succinate 40 MG/1 ML INJ IV SCH (17:21)
[2020-08-28] MEDS: ALPRAZolam 0.5 MG TAB PO PRN (17:34)
[2020-08-28] MEDS: ALBUTEROL 2.5 MG/3 ML NEBU IH PRN (21:11)
[2020-08-28] MEDS: MONTELUKAST 10 MG TAB PO SCH (21:55)
[2020-08-29] MEDS: methylPREDNISolone Sod Succinate 40 MG/1 ML INJ IV SCH ×4 (00:13→18:30)
[2020-08-29] MEDS: IPRATROPIUM/ALBUTEROL SULFATE 3 ML AMPUL.NEB IH SCH ×6 (00:32→19:49)
[2020-08-29] MEDS: ALBUTEROL 2.5 MG/3 ML NEBU IH PRN ×2 (00:33→04:46)
[2020-08-29] MEDS: AZITHROMYCIN/NS 500 MG/250 ML 500 MG/250 ML BAG IV SCH (05:34)
[2020-08-29] MEDS: HEPARIN 5,000 UNIT/1 ML VIAL SUB-Q SCH ×3 (05:35→22:32)
[2020-08-29] MEDS: ALPRAZolam 0.5 MG TAB PO PRN ×3 (05:35→22:47)
[2020-08-29] MEDS: BUDESONIDE 0.5 MG/2 ML NEBU IH SCH ×2 (08:18→19:49)
--- NOTE | 2020-08-29 09:29 | Progress Note ---
Assessment and Plan Assessment and plan: (1) SOB (shortness of breath) Current Visit: Yes Status: Acute Plan to address problem: Oxygen via nasal cannula 3 L/min. DuoNeb nebulizer every 4 hours as needed. Solu-Medrol 40 mg IV every 6 hours. Singular 10 mg p.o. daily. Zithromax 500 mg IV daily. We do the blood cultures sputum culture. Recheck CBC BMP in the morning. (2) Acute asthma exacerbation Current Visit: No Status: Acute Plan to address problem: Admit the patient to the medical telemetry. Oxygen via nasal cannula 3 L/min. DuoNeb nebulizer every 4 hours as needed. Solu-Medrol 40 mg IV every 6 hours. Singular 10 mg p.o. daily. Zithromax 500 mg IV daily. We do the blood cultures sputum culture. Recheck CBC BMP in the morning. (3) DVT prophylaxis Current Visit: No Status: Acute Plan to address problem: Heparin 5000 units subcu every 8 hours. Protonix 40 mg p.o. daily for GI prophylaxis 08/29/2020 -Patient is complaining shortness of breath, patient looks anxious -Continue treatment with steroids, breathing treatment and oxygen support -I added Xanax as needed Disposition; DC in a.m. if stable History Interval history: Patient was seen and evaluated this morning Patient is complaining shortness of breath Hospitalist Physical - Physical exam Narrative exam: Not in cardiopulmonary distress. The patient appeared well nourished and normally developed. Vital signs as documented. Head exam is unremarkable. No scleral icterus . Neck is without jugular venous distension, thyromegaly, or carotid bruits. Lungs wheezing all over the chest Cardiac exam reveals regular rate and Rhythm. Abdominal exam reveals normal bowel sounds, nontender, no organomegaly. Extremities are nonedematous and both femoral and pedal pulses are normal. [employer]: Alert and oriented 3. No focal weakness. - Constitutional Vitals: Temp Pulse Resp BP Pulse Ox 97.5 F L 117 H 22 107/56 98 08/29/20 08:15 08/29/20 09:26 08/29/20 04:47 08/29/20 08:15 08/29/20 08:21 General appearance: Present: mild distress Results - Labs CBC & Chem 7: 08/28/20 04:54 08/28/20 04:54 Labs: Laboratory Last Values WBC 8.8 K/mm3 (4.5-11.0) 08/28/20 04:54 RBC 5.03 M/mm3 (3.65-5.03) 08/28/20 04:54 Hgb 13.6 gm/dl (10.1-14.3) 08/28/20 04:54 Hct 42.2 % (30.3-42.9) 08/28/20 04:54 MCV 84 fl (79-97) 08/28/20 04:54 MCH 27 pg (28-32) L 08/28/20 04:54 MCHC 32 % (30-34) 08/28/20 04:54 RDW 15.2 % (13.2-15.2) 08/28/20 04:54 Plt Count 354 K/mm3 (140-440) 08/28/20 04:54 Lymph % (Auto) 21.9 % (13.4-35.0) 08/28/20 04:54 [place] % (Auto) 6.3 % (0.0-7.3) 08/28/20 04:54 Eos % (Auto) 4.9 % (0.0-4.3) H 08/28/20 04:54 Baso % (Auto) 0.4 % (0.0-1.8) 08/28/20 04:54 Lymph # (Auto) 1.9 K/mm3 (1.2-5.4) 08/28/20 04:54 [place] # (Auto) 0.6 K/mm3 (0.0-0.8) 08/28/20 04:54 Eos # (Auto) 0.4 K/mm3 (0.0-0.4) 08/28/20 04:54 Baso # (Auto) 0.0 K/mm3 (0.0-0.1) 08/28/20 04:54 Seg Neutrophils % 66.5 % (40.0-70.0) 08/28/20 04:54 Seg Neutrophils # 5.9 K/mm3 (1.8-7.7) 08/28/20 04:54 Sodium 145 mmol/L (137-145) 08/28/20 04:54 Potassium 3.8 mmol/L (3.6-5.0) 08/28/20 04:54 Chloride 107.8 mmol/L (98-107) H 08/28/20 04:54 Carbon Dioxide 25 mmol/L (22-30) 08/28/20 04:54 Anion Gap 16 mmol/L 08/28/20 04:54 BUN 9 mg/dL (7-17) 08/28/20 04:54 Creatinine 0.5 mg/dL (0.6-1.2) L 08/28/20 04:54 Estimated GFR > 60 ml/min 08/28/20 04:54 BUN/Creatinine Ratio 18 % 08/28/20 04:54 Glucose 92 mg/dL (65-100) 08/28/20 04:54 Calcium 8.9 mg/dL (8.4-10.2) 08/28/20 04:54 Total Bilirubin 0.40 mg/dL (0.1-1.2) 08/28/20 04:54 AST 17 units/L (5-40) 08/28/20 04:54 ALT 16 units/L (7-56) 08/28/20 04:54 Alkaline Phosphatase 101 units/L (35-129) 08/28/20 04:54 Total Protein 6.7 g/dL (6.3-8.2) 08/28/20 04:54 Albumin 4.2 g/dL (3.9-5) 08/28/20 04:54 Albumin/Globulin Ratio 1.7 % 08/28/20 04:54 HCG, Qual Negative (Negative) 08/28/20 04:54 Heller/IV: Voiding Method Toilet IV Catheter Type [Left Peripheral IV Antecubital] IV Catheter Type [Right Distal INT / Saline Lock Port Antecubital] Active Medications - Current Medications Current Medications: Generic Name Dose Route Start Last Admin Trade Name Freq PRN Reason Stop Dose Admin Albuterol 2.5 mg 08/28/20 17:25 08/29/20 04:46 Albuterol 2.5 Mg/3 Ml Nebu IH 2.5 mg Q4HR PRN Administration Shortness Of Breath Albuterol/Ipratropium 1 ampul 08/28/20 12:00 08/29/20 08:18 Ipratropium/Albuterol Sulfate 3 Ml Ampul.Neb IH 1 ampul Q4HRT RICK Administration Alprazolam 0.5 mg 08/28/20 17:27 08/29/20 05:35 Alprazolam 0.5 Mg Tab PO 0.5 mg Q8H PRN Administration Anxiety Budesonide 0.5 mg 08/28/20 08:00 08/29/20 08:18 Budesonide 0.5 Mg/2 Ml Nebu IH 0.5 mg Q12HRT RICK Administration Heparin Sodium (Porcine) 5,000 unit 08/28/20 06:15 08/29/20 05:35 Heparin 5,000 Unit/1 Ml Vial SUB-Q 5,000 unit Q8HR RICK Administration Azithromycin 500 mg in 250 mls @ 250 mls/hr 08/28/20 06:00 08/29/20 05:34 Zithromax/Ns IV 250 mls/hr Q24H RICK Administration Protocol Methylprednisolone Sodium Succinate 60 mg 08/28/20 12:44 08/29/20 05:34 Methylprednisolone Sod Succinate 40 Mg/1 Ml Inj IV 60 mg Q6HR RICK Administration Montelukast Sodium 10 mg 08/28/20 22:00 08/28/20 21:55 Montelukast 10 Mg Tab PO 10 mg QHS RICK Administration Pantoprazole Sodium 40 mg 08/28/20 07:30 08/28/20 10:33 Pantoprazole 40 Mg Tab PO 40 mg QDAC RICK Administration Pneumococcal Polyvalent Vaccine 0.5 ml 08/29/20 12:00 Pneumococcal 23 Valent 0.5 Ml Vial IM 08/29/20 12:01 .ONCE ONE
[2020-08-29] MEDS: PANTOPRAZOLE 40 MG TAB PO SCH (11:53)
[2020-08-29] MEDS ORDERED: FLU VACC QUAD 2020-2021 (6 months +)/PF 60 0.5 ML SYRINGE IM ONE (12:00)
[2020-08-29] MEDS ORDERED: PNEUMOCOCCAL 23 Valent 0.5 ML VIAL IM ONE (12:00)
[2020-08-29] MEDS: MONTELUKAST 10 MG TAB PO SCH (22:32)
[2020-08-30] MEDS: methylPREDNISolone Sod Succinate 40 MG/1 ML INJ IV SCH ×3 (00:16→11:58)
[2020-08-30] MEDS: IPRATROPIUM/ALBUTEROL SULFATE 3 ML AMPUL.NEB IH SCH ×5 (01:37→16:46)
[2020-08-30] MEDS: AZITHROMYCIN/NS 500 MG/250 ML 500 MG/250 ML BAG IV SCH (05:22)
[2020-08-30] MEDS: HEPARIN 5,000 UNIT/1 ML VIAL SUB-Q SCH ×2 (05:22→14:33)
[2020-08-30 06:44] LABS: Blood Urea Nitrogen 17 mg/dL (7-17); Calcium 8.7 mg/dL (8.4-10.2); Hemolysis Index 4
[2020-08-30 06:45] LABS: BUN/Creatinine Ratio 43
[2020-08-30] MEDS: PANTOPRAZOLE 40 MG TAB PO SCH (07:30)
[2020-08-30] MEDS: BUDESONIDE 0.5 MG/2 ML NEBU IH SCH (09:34)
--- NOTE | 2020-08-30 09:56 | Discharge Summary ---
Providers - Providers Date of Admission: 08/28/20 05:54 Date of discharge: 08/30/20 Attending physician: FRANK MADRIGAL [facility] Condition: Critical Hospital course: 49-year-old female with history of asthma was presented to the hospital because of progressive shortness of breath and cough for 1 day duration. Patient denied any fever stated that her symptoms did not improve after taking her inhalers. Patient was admitted to medical floor with scheduled nebs, iv abx, iv steroids and supplemental O2 to keep O2 sat at 94%. CXR showed no infiltrates. Patients symptom improved with medical management. Patient was then discharged home in stable condition with outpt f/u. Discharge diagnosis: Acute hypoxic respiratory failure, due to acute asthma exacerbation Acute asthma exacerbation Disposition: - TO HOME OR SELFCARE Time spent for discharge: 34 minutes Core Measure Documentation - Palliative Care Palliative Care/ Comfort Measures: Not Applicable - Core Measures Any of the following diagnoses?: none Exam - Constitutional Vitals: Temp Pulse Resp BP Pulse Ox 98.2 F 105 H 20 113/64 92 08/30/20 08:10 08/30/20 09:34 08/30/20 09:34 08/30/20 08:10 08/30/20 09:34 Plan Activity: advance as tolerated Weight Bearing Status: Weight Bear as Tolerated Diet: low fat, low salt Durable Medical Equipment Needed Upon Discharge: Nebulizer [facility] - 7 Days Prescriptions: Montelukast [Singulair] 10 mg PO QHS #30 tablet Fluticasone Propion/Salmeterol [Fluticasone-Salmeterol 250-50] 1 each IH BID #1 inh Prednisone [predniSONE 10 mg (6-Day Pack, 21 Tabs)] 10 mg PO .TAPER #1 tab.ds.pk ALBUTEROL NEB's [Proventil 0.083% NEBS] 2.5 mg IH Q8HR PRN #300 ml PRN Reason: Wheezing Azithromycin [Zithromax TAB] 500 mg PO QDAY #3 tablet
[2020-08-30 12:39] VITALS: BP 114/54
== END 2020-08-30 16:40 | disposition home or self-care (01) ==
LOC: ED 04:38 → 4A 05:54
PROVIDERS: ADMIT Hospitalist; ATTEND Internal Medicine
DX: J45.52 Severe persistent asthma with status asthmaticus (principal); J45.901 Unspecified asthma with (acute) exacerbation; Z90.49 Acquired absence of other specified parts of digestive tract; Z23 Encounter for immunization
CPT/HCPCS: 36415; 71045; 80048; 80053; 82962; 84703; 85025; 90732; 94640; 94760; 96365; 96366; 96367; 96372; 96375; 96376; 99291; G0009; G0378; J0456; J1644; J2920; J2930; J3475; 90471; 90686; 94644; G0008

== ENCOUNTER 2021-06-21 22:07 | Emergency (ER) | payer MEDICAID, OTHER ==
[2021-06-21 23:20] VITALS: BP 137/88
== END 2021-06-22 02:46 | disposition left against medical advice (07) ==
LOC: ED 22:07
DX: K08.89 Other specified disorders of teeth and supporting structures (principal); Z53.21 Procedure and treatment not carried out due to patient leaving prior to being seen by health care provider